=== PATIENT | male | born 1985 | race Two or more races ===

== ENCOUNTER 2022-01-24 08:00 | Outpatient (CLI) | payer OTHER | END 2022-01-24 08:05 | disposition home or self-care (01) | LOC: PPH VACUNA 08:00 | PROVIDERS: ATTEND Emergency Medicine Pediatric Emergency Medicine | DX: Z23 Encounter for immunization (principal) ==

== ENCOUNTER 2022-05-10 09:53 | Outpatient (CLI) | payer OTHER | END 2022-05-10 10:04 | disposition home or self-care (01) | LOC: SONOGRAMA 09:53 | PROVIDERS: ATTEND Specialist | DX: E05.00 Thyrotoxicosis with diffuse goiter without thyrotoxic crisis or storm (principal) ==

== ENCOUNTER 2023-02-03 10:00 | Outpatient (CLI) | payer OTHER | END 2023-02-03 10:10 | disposition home or self-care (01) | LOC: PPH VACUNA 10:00 | PROVIDERS: ATTEND Emergency Medicine Pediatric Emergency Medicine | DX: Z23 Encounter for immunization (principal) ==

== ENCOUNTER 2023-12-08 08:38 | Outpatient (CLI) | payer OTHER | END 2023-12-08 08:48 | disposition home or self-care (01) | LOC: RAD 08:38 | PROVIDERS: ATTEND Orthopaedic Surgery | DX: M79.672 Pain in left foot (principal) ==

== ENCOUNTER 2024-03-22 09:20 | Outpatient (CLI) | payer OTHER | END 2024-03-22 09:30 | disposition home or self-care (01) | LOC: PPH VACUNA 09:20 | PROVIDERS: ATTEND Emergency Medicine Pediatric Emergency Medicine | DX: Z23 Encounter for immunization (principal) ==

== ENCOUNTER 2025-03-02 14:00 | Outpatient (CLI) | payer OTHER | END 2025-03-02 14:10 | disposition home or self-care (01) | LOC: PPH VACUNA 14:00 | PROVIDERS: ATTEND Emergency Medicine Pediatric Emergency Medicine | DX: Z23 Encounter for immunization (principal) ==